=== PATIENT | female | born 1975 | race Caucasian/White ===

== ENCOUNTER 2016-06-17 14:17 | Emergency (ER) | payer OTHER ==
[2016-06-17 14:25] VITALS: BMI 37.8
[2016-06-17 14:28] VITALS: BP 129/82; PULSE 82; RESP 16; TEMP 98.2; O2SAT 100
--- NOTE | 2016-06-17 14:59 | ED PDOC ---
Arrival/HPI - General Chief Complaint: Upper Extremity Problem/Injury Time Seen by Provider: 06/17/16 14:50 Historian: Patient - History of Present Illness Narrative History of Present Illness (Text): 06/17/16 14:54 Oscar Whitten is a 40 year old female, with a history of wrist tendonitis, presents to the emergency department complaining of right wrist pain since yesterday. Reports that symptoms presented as a pressure sensation to the right wrist. Notes she woke up with pain to the wrist which has become progressively worse throughout the day. Patient notes that mild swelling to the area, and states that pain is worsened with movement. She states that pain is radiating up her arm. Denies taking any pain medications. Denies fever, chills, headache, dizziness, chest pain, shortness of breath, urinary symptoms, or any other complaints at this time. Time/Duration: Other (since yesterday ) Symptom Onset: Gradual Symptom Course: Unchanged Severity Level: Mild Activities at Onset: Light Past Medical History - Provider Review Nursing Documentation Reviewed: Yes - Psychiatric Hx Substance Use: No Family/Social History - Physician Review Nursing Documentation Reviewed: Yes Family/Social History: No Known Family HX Smoking Status: Never Smoked Hx Alcohol Use: No Hx Substance Use: No Allergies/Home Meds Allergies/Adverse Reactions: Allergies Penicillins Allergy (Verified 06/17/16 14:25) ANAPHYLAXIS Review of Systems - Physician Review All systems were reviewed & negative as marked: Yes - Review of Systems Constitutional: Normal. absent: Fatigue, Fevers Musculoskeletal: Other (right wrist pain ) Neurological: Normal. absent: Headache, Dizziness Psychiatric: Normal Physical Exam - Physical Exam Narrative Physical Exam (Text): Constitutional: No acute distress. Head: Normocephalic. Atraumatic. Eyes: PERRL. ENT: Moist mucous membranes. Neck: Supple. Cardiovascular: Regular rate. Chest: No tenderness. Respiratory: Clear to auscultation bilaterally. GI: Soft. Nontender. Nondistended. Back: No CVA tenderness. Musculoskeletal: tenderness to right wrist and thumb. No snuff box tenderness Skin: No rash. Neurologic: Alert, no focal deficit. Vital Signs Reviewed: Yes Vital Signs Temp Pulse Resp BP Pulse Ox 06/17/16 14:25 98.2 F 82 16 129/82 100 Temperature: Afebrile Blood Pressure: Normal Pulse: Regular Respiratory Rate: Normal Appearance: Positive for: Well-Appearing, Non-Toxic, Comfortable Pain Distress: None Mental Status: Positive for: Alert and Oriented X 3 Medical Decision Making ED Course and Treatment: 06/17/16 15:01 Impression: A 40 year old female presenting to emergency room for evaluation of right wrist pain. Plan: -- right Wrist xray -- Toradol -- Reassess and disposition Progress Notes: 06/17/16 16:11 Accession No. : [id number] Patient Name / ID : JORGE HARDIN / [id number] Exam Date : 06/17/2016 15:30:04 ( Approved ) Study Comment : Sex / Age : F / 40Y Creator : Scott Blancas MD Dictator : Scott Blancas MD [employer] : [employer] Site Manager : Scott Blancas MD Approver2 : Report Date : 06/17/2016 16:09:21 My Comment : PROCEDURE: Right wrist dated 06/17/2016 HISTORY: atraumatic pain COMPARISON: Correlation made with concurrent radiographs of the right hand. The FINDINGS: BONES: No evidence of acute displaced fracture nor dislocation. The osseous structures appear intact. There is small corticated the elliptical shaped bony density within the radial soft tissues adjacent to the navicular and greater multangular joint space margin which could represent some old posttraumatic mineralization versus tiny chronic avulsion injury. Clinical correlation recommended. JOINTS: Normal. No dislocation. SOFT TISSUES: Normal. OTHER FINDINGS: None. IMPRESSION: No evidence of acute displaced fracture nor dislocation. The osseous structures appear intact. There is small corticated the elliptical shaped bony density within the radial soft tissues adjacent to the navicular and greater multangular joint space margin which could represent some old posttraumatic mineralization versus tiny chronic avulsion injury. Clinical correlation recommended. . If symptoms persist or, consider followup nonemergent MRI of the wrist. Accession No. : [id number] Patient Name / ID : JORGE HARDIN / [id number] Exam Date : 06/17/2016 15:27:41 ( Approved ) Study Comment : Sex / Age : F / 40Y Creator : Scott Blancas MD Dictator : Scott Blancas MD [employer] : [employer] Site Manager : Scott Blancas MD Approver2 : Report Date : 06/17/2016 16:03:51 My Comment : PROCEDURE: Right hand dated 06/17/2016 HISTORY: Atraumatic pain COMPARISON: None. FINDINGS: BONES: No evidence of acute displaced fracture nor dislocation. There is a tiny round/ elliptical shaped bony density within the radial soft tissues adjacent to the navicular and greater multangular joint space margin which could represent some old posttraumatic mineralization or old avulsion injury. Clinical correlation recommended. No obvious cortical destructive changes. JOINTS: Normal. No dislocation. SOFT TISSUES: Soft tissues appear grossly unremarkable. OTHER FINDINGS: None. IMPRESSION: No evidence of acute displaced fracture nor dislocation. Questionable old posttraumatic mineralization or tiny avulsion injury within the radial soft tissues adjacent to the navicular and greater multangular joint space margin Wrist splint placed. Continue NSAIDs for pain. F/u PMD/Ortho, return to ER for worsening pain, fever, or any other problem. - RAD Interpretation Radiology Orders: 06/17/16 14:51 HAND RIGHT 3 VIEWS [RAD] Stat WRIST, RIGHT 3 VIEWS [RAD] Stat - Medication Orders Current Medication Orders: Discontinued Medications Ketorolac Tromethamine (Toradol) 60 mg IM STAT STA Stop: 06/17/16 14:52 Last Admin: 06/17/16 15:05 Dose: 60 MG IM Administration Charges Document 06/17/16 15:05 SE (Rec: 06/17/16 15:05 SE [id number]) Injection Site MAR Injection Site Right Vastus Lateralis Charges for Administration # of IM Administrations 1 - Scribe Statement The provider has reviewed the documentation as recorded by the Sarwat Knowles Provider Attestation: All medical record entries made by the Sarwat were at my direction and personally dictated by me. I have reviewed the chart and agree that the record accurately reflects my personal performance of the history, physical exam, medical decision making, and the department course for this patient. I have also personally directed, reviewed, and agree with the discharge instructions and disposition. Disposition/Present on Arrival - Present on Arrival Any Indicators Present on Arrival: No History of DVT/PE: No History of Uncontrolled Diabetes: No Urinary Catheter: No History of Decub. Ulcer: No History Surgical Site Infection Following: None - Disposition Have Diagnosis and Disposition been Completed?: Yes Diagnosis: Wrist pain Disposition: HOME/ ROUTINE Disposition Time: 16:13 Patient Plan: Discharge Condition: STABLE Discharge Instructions (ExitCare): Swollen Joint (ED) Prescriptions: Ibuprofen [Motrin] 600 mg PO Q6 #25 tab oxyCODONE/Acetaminophen [Percocet 5/325 mg Tab] 1 tab PO Q6 #10 tab Referrals: Michelle Pratt DO [Primary Care Provider] - Follow up with primary Forms: WORK NOTE
--- NOTE | 2016-06-17 16:05 | RAD ---
PROCEDURE: Right hand dated 06/17/2016 HISTORY: Atraumatic pain COMPARISON: None. FINDINGS: BONES: No evidence of acute displaced fracture nor dislocation. There is a tiny round/elliptical shaped bony density within the radial soft tissues adjacent to the navicular and greater multangular joint space margin which could represent some old posttraumatic mineralization or old avulsion injury. Clinical correlation recommended. No obvious cortical destructive changes. JOINTS: Normal. No dislocation. SOFT TISSUES: Soft tissues appear grossly unremarkable. OTHER FINDINGS: None. IMPRESSION: No evidence of acute displaced fracture nor dislocation. Questionable old posttraumatic mineralization or tiny avulsion injury within the radial soft tissues adjacent to the navicular and greater multangular joint space margin
--- NOTE | 2016-06-17 16:10 | RAD ---
PROCEDURE: Right wrist dated 06/17/2016 HISTORY: atraumatic pain COMPARISON: Correlation made with concurrent radiographs of the right hand. The FINDINGS: BONES: No evidence of acute displaced fracture nor dislocation. The osseous structures appear intact. There is small corticated the elliptical shaped bony density within the radial soft tissues adjacent to the navicular and greater multangular joint space margin which could represent some old posttraumatic mineralization versus tiny chronic avulsion injury. Clinical correlation recommended. JOINTS: Normal. No dislocation. SOFT TISSUES: Normal. OTHER FINDINGS: None. IMPRESSION: No evidence of acute displaced fracture nor dislocation. The osseous structures appear intact. There is small corticated the elliptical shaped bony density within the radial soft tissues adjacent to the navicular and greater multangular joint space margin which could represent some old posttraumatic mineralization versus tiny chronic avulsion injury. Clinical correlation recommended. . If symptoms persist or, consider followup nonemergent MRI of the wrist.
== END 2016-06-17 16:43 | disposition home or self-care (01) ==
LOC: ED 14:17
DX: M25.531 Pain in right wrist (principal)
CPT/HCPCS: 29125; 73110; 73130; 96372; 99284; J1885